=== PATIENT | male | born 1965 | race Caucasian/White ===

== ENCOUNTER 2019-07-19 15:51 | Emergency (ER) | payer SELFPAY ==
[~2019-07-19] VITALS: Ht 177.8 cm; Wt 79.4 kg
--- NOTE | 2019-07-19 15:53 | NUR ---
BIBA TAKEN TO BED 3
--- NOTE | 2019-07-19 16:00 | NUR ---
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 PUPILS PERRL. MEMORY INTACT. PT CALM AND RELAXED. GCS 15.
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
[2019-07-19 16:01] VITALS: BP 146/96
[2019-07-19] MEDS ORDERED: LORazepam 2 MG/ML VIAL IVP ONE (16:05)
--- NOTE | 2019-07-19 16:05 | NUR ---
DR GARCIA AT BEDSIDE
--- NOTE | 2019-07-19 16:18 | NUR ---
ATIVAN IVP ADMINISTERED
--- NOTE | 2019-07-19 16:39 | NUR ---
WITH PERMISSION FROM PATIENT, SPOKE WITH ANKUR (PS DAUGHTER) IN REGARDS TO PATIENT STATUS
[2019-07-19] MEDS ORDERED: PHENYTOIN 1,000 MG in NACL 0.9% 100 ML IV ONE (16:45)
[2019-07-19] MEDS ORDERED: PHENYTOIN 100 MG/2 ML VIAL IVP ONE (16:48)
--- NOTE | 2019-07-19 17:18 | NUR ---
DILANTIN ADMINISTERING
--- NOTE | 2019-07-19 17:37 | NUR ---
PT AMB TO RESTROOM WITH STEADY GAIT
--- NOTE | 2019-07-19 18:27 | NUR ---
SPOKE WITH ANKUR IN REGARDS TO FATHER [phone]
--- NOTE | 2019-07-19 18:30 | NUR ---
Note abbie in ED - 07/19/19 at 1838 by LEOBARDO Patient will be admitted to care of [facility]. Admited to [facility]. Will go to room 117. Belongings list completed. Report to LESLEY THOMPSON.
[2019-07-19 19:01] VITALS: BP 120/93
--- NOTE | 2019-07-19 19:01 | NUR ---
Patient discharged with v/s stable. Written and verbal after care instructions given and explained. Patient alert, oriented and verbalized understanding of instructions. Ambulatory with steady gait. All questions addressed prior to discharge. ID band removed. Patient advised to follow up with PMD. Rx of DILATIN given. Patient educated on indication of medication including possible reaction and side effects. Opportunity to ask questions provided and answered. PT AMB WITH STEADY GAIT, DENIES DIZZINESS PTS UBER WILL BEAD FLIP[facility]
== END 2019-07-19 19:01 | disposition home or self-care (01) ==
LOC: MED 15:51
DX: G40.909 Epilepsy, unspecified, not intractable, without status epilepticus (principal); R03.0 Elevated blood-pressure reading, without diagnosis of hypertension; R11.0 Nausea
CPT/HCPCS: 36415; 80185; 96365; 96375; 99284; J1165; J2060